=== PATIENT | male | born 2000 | race Caucasian/White ===

== ENCOUNTER 2020-02-04 00:55 | Emergency (ER) | payer OTHER ==
[2020-02-04] MEDS ORDERED: OXYCODONE-ACETAMINOPHEN 5-325 MG TABLET PO ONE (02:10)
[2020-02-04] MEDS ORDERED: IBUPROFEN 800 MG TABLET PO ONE (02:12)
--- NOTE | 2020-02-04 02:19 | ER Document Report ---
HPI - HPI Time Seen by Provider: 02/04/20 02:05 Pain Level: 3 Notes: Otherwise healthy 20-year-old male presented to the emergency department chief complaint of sunburn. Patient reports he was in the sun for 8 hours on Friday which was 5 days ago. He states he received a sunburn to his bilateral lower extremities. He did not have sunscreen on. He states that the area is now blistering, skin is sloughing off and has excruciating pain. Past Medical History - General Information source: Patient - Social History Smoking Status: Never Smoker Frequency of alcohol use: None Drug Abuse: None Family History: Reviewed & Not Pertinent Patient has homicidal ideation: No - Medical History Medical History: Negative Surgical Hx: Negative - Immunizations Immunizations up to date: Yes Vertical Provider Document - CONSTITUTIONAL Notes: PHYSICAL EXAMINATION: GENERAL: Well-appearing, well-nourished and in no acute distress. HEAD: Atraumatic, normocephalic. EYES: Pupils equal round extraocular movements intact, conjunctiva are normal. ENT: Nares patent NECK: Normal range of motion LUNGS: No respiratory distress Musculoskeletal: Normal range of motion NEUROLOGICAL: Normal speech, normal gait. PSYCH: Normal mood, normal affect. SKIN: Superficial second-degree huffman noted to anterior surface of bilateral lower extremities from the mid thigh down to the ankles. Non-circumferential. Course - Re-evaluation Re-evalutation: Temp Pulse Resp BP Pulse Ox 98.2 F 84 16 138/80 H 99 02/04/20 02:45 02/04/20 02:45 02/04/20 02:45 02/04/20 02:45 02/04/20 02:45 Intake & Output 02/04/20 02/05/20 02/06/20 06:59 06:59 06:59 Weight 68.4 kg Weight/Height Weight 68.4 kg Height 6 ft - Vital Signs Vital signs: Temp Pulse Resp BP Pulse Ox 98.4 F 91 16 150/85 H 99 02/04/20 01:58 02/04/20 01:03 02/04/20 01:03 02/04/20 01:03 02/04/20 01:03 Discharge - Discharge Clinical Impression: Sunburn of second degree Condition: Stable Disposition: HOME, SELF-CARE Additional Instructions: Sunburn Sunburn is caused by prolonged exposure to ultraviolet light. This can be natural sunlight or a tanning bed. Your symptoms may include redness or blistering of the skin, fatigue, weakness, and chills that last two or three days. Treatment includes antiinflammatory pain medication, rest, cooling baths, and moisturizing skin cream. Occasionally, cortisone-type medicine is required for severe sunburns. Antihistamines may be helpful if itching is severe as you heal. You should avoid any exposure to ultraviolet light for the next two weeks so that further skin damage can be avoided. In the future, you should use sunscreens. Frequent or prolonged ultraviolet light exposure can cause premature skin aging, skin cancers, and wrinkles. Call the doctor if you are not improving in two or three days. Report any drainage, increasing swelling, fever, chills, or other signs of infection. Please take medications as prescribed. Please also take ibuprofen 800 mg every 8 hours. You can purchase this [id number]. You most likely can also purchase the Aquaphor ointment [id number]. Please apply this to the area 3 times daily. Follow-up with your primary care doctor in 3 days for a burn recheck. Prescriptions: Oxycodone HCl/Acetaminophen [Percocet 5-325 mg Tablet] 1 - 2 tab PO Q6HP PRN #15 tablet PRN Reason: Petrolatum,White [Aquaphor] 1 applic TP TID #1 each Forms: Return to Work
[2020-02-04 05:23] VITALS: BP 138/80
== END 2020-02-04 02:45 | disposition home or self-care (01) ==
LOC: ER 00:55
DX: L55.1 Sunburn of second degree (principal)
CPT/HCPCS: 99282

== ENCOUNTER 2020-07-19 17:46 | Emergency (ER) | payer OTHER ==
[2020-07-19 18:02] VITALS: BP 149/98
[2020-07-19] MEDS ORDERED: HYDROCODONE/ACETAMINOPHEN 5-325 MG TABLET PO ONE (18:19)
--- NOTE | 2020-07-19 18:19 | ER Document Report ---
ED Medical Screen (RME) - General Chief Complaint: Burn Stated Complaint: SKIN PROBLEM/BURN Time Seen by Provider: 07/19/20 18:11 Mode of Arrival: Ambulatory Information source: Patient Notes: 20-year-old male presented to ED for complaint of huffman to the palm of his hand. He states he was working on a truck when he heated up a piece of metal and then forgot that he had he did it up and grabbed it with his bare hands. He does have second-degree huffman to the palm and all 5 fingers worse on the fourth and fifth fingers. He does have range of motion to the hand but they are painful. He did have his body put some burn gel dressings onto his hand and fingers when he burned. He also took ibuprofen earlier. We will give 1 [place] now he will be reassessed by another provider. I have greeted and performed a rapid initial assessment of this patient. A comprehensive ED assessment and evaluation of the patient, analysis of test results and completion of medical decision making process will be conducted by an additional ED providers. - Related Data Allergies/Adverse Reactions: No Known Allergies Allergy (Verified 07/19/20 18:10) Past Medical History - Immunizations Immunizations up to date: Yes Physical Exam - Vital signs Vitals: Temp Pulse Resp BP Pulse Ox 99.1 F 81 16 149/98 H 99 07/19/20 18:01 07/19/20 18:01 07/19/20 18:01 07/19/20 18:01 07/19/20 18:01 Course - Vital Signs Vital signs: Temp Pulse Resp BP Pulse Ox 99.1 F 81 16 149/98 H 99 07/19/20 18:01 07/19/20 18:01 07/19/20 18:01 07/19/20 18:01 07/19/20 18:01
[2020-07-19] MEDS ORDERED: SILVER SULFADIAZINE 1% CREAM 400 GM TP PRN (18:30)
[2020-07-19] MEDS ORDERED: HYDROCODONE/ACETAMINOPHEN 5-325 MG (6 TAB/ER DISP) PO PRN (18:30)
--- NOTE | 2020-07-19 18:37 | ER Document Report ---
ED Burn/Smoke/Toxic Fumes - General Chief Complaint: Burn Stated Complaint: SKIN PROBLEM/BURN Time Seen by Provider: 07/19/20 18:11 Mode of Arrival: Ambulatory Notes: 20-year-old male presented to ED for complaint of huffman to the palm of his hand. He states he was working on a truck when he heated up a piece of metal and then forgot that he had he did it up and grabbed it with his bare hands. He does have second-degree huffman to the palm and all 5 fingers worse on the fourth and fifth fingers. He does have range of motion to the hand but they are painful. He did have his body put some burn gel dressings onto his hand and fingers when he burned. He also took ibuprofen earlier. We will give 1 [place] now he will be reassessed by another provider. Constitutional: Negative for fever. HENT: Negative for sore throat. Eyes: Negative for visual changes. Cardiovascular: Negative for chest pain. Respiratory: Negative for shortness of breath. Gastrointestinal: Negative for abdominal pain, vomiting or diarrhea. Genitourinary: Negative for dysuria. Musculoskeletal: Negative for back pain. Skin: Burn to the tips of fingers 2 3 and 4 and 5 in the palm of the hand second-degree partial-thickness Neurological: Negative for headaches, weakness or numbness. 10 point ROS negative except as marked above and in HPI. PHYSICAL EXAMINATION: GENERAL: Well-appearing, well-nourished and in no acute distress. HEAD: Atraumatic, normocephalic. EYES: Pupils equal round extraocular movements intact, conjunctiva are normal. ENT: Nares patent NECK: Normal range of motion LUNGS: No respiratory distress Musculoskeletal: Normal range of motion NEUROLOGICAL: Normal speech, normal gait. PSYCH: Normal mood, normal affect. SKIN: Second-degree huffman to the palm second through fifth fingertips - HPI Patient complains to provider of: Burn Onset: Just prior to arrival Where: Work Quality of pain: Burning Severity: Moderate Pain Level: 4 Context: Other - Heated a piece of metal then grabbed with his bare hand Associated Symptoms: None Other injuries: Hand - Left - Related Data Allergies/Adverse Reactions: No Known Allergies Allergy (Verified 07/19/20 18:10) Past Medical History - General Information source: Patient - Social History Smoking Status: Never Smoker Chew tobacco use (# tins/day): No Frequency of alcohol use: Occasional Drug Abuse: None Lives with: Family Family History: Reviewed & Not Pertinent Patient has suicidal ideation: No Patient has homicidal ideation: No - Past Medical History Cardiac Medical History: Reports: None Pulmonary Medical History: Reports: None EENT Medical History: Reports: None Neurological Medical History: Reports: None Endocrine Medical History: Reports: None Renal/ Medical History: Reports: None Malignancy Medical History: Reports None GI Medical History: Reports: None Musculoskeletal Medical History: Reports None Skin Medical History: Reports None Psychiatric Medical History: Reports: None Traumatic Medical History: Reports: None Infectious Medical History: Reports: None Surgical Hx: Negative Past Surgical History: Reports: None - Immunizations Immunizations up to date: Yes Hx Diphtheria, Pertussis, Tetanus Vaccination: Yes - 2019 Physical Exam - Vital signs Vitals: Temp Pulse Resp BP Pulse Ox 99.1 F 81 16 149/98 H 99 07/19/20 18:01 07/19/20 18:01 07/19/20 18:01 07/19/20 18:01 07/19/20 18:01 Course - Re-evaluation Re-evalutation: 07/19/20 21:54 Hands were both cleaned with surgical scrub brush and surgical scrub. Silvadene cream applied to left palm and second through fifth finger tip due to the huffman second-degree. Dr. Newsome recommended this treatment. He then had Telfa applied to the hand and wrapped with Kerlix. He was instructed to change this times a day and return to the ED on Friday to ensure that the hand is not getting worse. Patient was also discharged home with a [place] dispense pack for the pain. - Vital Signs Vital signs: Temp Pulse Resp BP Pulse Ox 99.1 F 81 16 149/98 H 99 07/19/20 18:11 07/19/20 18:01 07/19/20 18:01 07/19/20 18:01 07/19/20 18:01 Discharge - Discharge Clinical Impression: Burn of left hand including fingers Qualifiers: Encounter type: initial encounter Burn degree: partial thickness (2nd degree) Qualified Code(s): T23.202A - Burn of second degree of left hand, unspecified site, initial encounter Condition: Stable Disposition: HOME, SELF-CARE Additional Instructions: Huffman The seriousness of a burn is not always obvious at first. Delayed tissue damage and secondary infection may occur despite proper treatment. Proper care is very important. A burn that is third-degree may need skin grafting. Most huffman, however, are simply protected with dressings until healed. Keep the burn clean. If the dressing gets wet, remove it and blot the wound dry, then apply a fresh dressing. Dressings should be changed at least once daily. Soaks to remove crusting are usually started in about two days. Huffman in certain areas require stretching to prevent disabling tightness. Your doctor will advise you about this. For pain control, you may frequently apply a hand towel that has been dipped in water with ice cubes. Do not apply ice directly to the burned areas. If any signs of infection occur (swelling, redness, increasing tenderness, red streaks, tender lumps in the armpit or groin above the burn, or fever), contact the doctor immediately. Silvadene Cream Silvadene is very effective against the germs that cause infection within the skin. It is used to prevent infection in burn injuries. Apply the medicine once or twice a day, as prescribed, for one week, or longer if your doctor has advised it. Stop the medicine and call your doctor if you develop large blisters, severe itching, increasing pain, swelling, fever, or spreading redness. Oral Narcotic Medication You have been given a prescription for pain control. This medication is a narcotic. It's best taken with food, as nausea can result if taken on an empty stomach. Don't operate machinery or drive within six hours of taking this medication. Do not combine this medicine with alcohol, or with any medication which can cause sedation (such as cold tablets or sleeping pills) unless you get permission from the physician. Narcotics tend to cause constipation. If possible, drink plenty of fluids and eat a diet high in fiber and fruits. You need to return to the hospital ER Friday to have this reexamined. Is important to have this reexamined to ensure that it is healing properly. FOLLOW-UP CARE: If you have been referred to a physician for follow-up care, call the physicians office for an appointment as you were instructed or within the next two days. If you experience worsening or a significant change in your symptoms, notify the physician immediately or return to the Emergency Department at any time for re-evaluation. Forms: Elevated Blood Pressure, Return to Work
== END 2020-07-19 18:52 | disposition home or self-care (01) ==
LOC: ER 17:46
DX: T23.252A Burn of second degree of left palm, initial encounter (principal); T23.232A Burn of second degree of multiple left fingers (nail), not including thumb, initial encounter; X19.XXXA Contact with other heat and hot substances, initial encounter; Y99.0 Civilian activity done for income or pay
CPT/HCPCS: 99283; J3490